=== PATIENT | female | born 1970 | race Caucasian/White ===

== ENCOUNTER 2019-10-19 14:24 | Emergency (ER) | payer OTHER, SELFPAY ==
[2019-10-19] MEDS ORDERED: diphenhydrAMINE 50 MG/ML VIAL ONE (15:01)
[2019-10-19 15:34] LABS: #Basophils 0.1 thou/uL (0.0-0.2); #Eosinphils 0.2 thou/uL (0.0-0.7); #Lymphocytes 1.8 thou/uL (1.20-3.40); #Monocytes 0.6 thou/uL (0.11-0.59); #Neutrophils 4.4 thou/uL (1.40-6.50); %Basophils 1.6 % (0.0-1.0); %Eosinophils 2.9 % (0.0-10.0); %Lymphocytes 25.2 % (21.0-51.0); %Neutrophils 61.4 % (42.0-75.0); Hemoglobin 12.8 g/dL (12.0-16.0); Mean Corpuscular HGB CONC 34.1 g/dL (32.0-36.0); Mean Corpuscular Hemoglobin 30.3 pg (27.0-31.0); Mean Platelet Volume 7.2 fL (7.4-10.4); Platelet Count 272 thou/uL (130-400); RBC Distribution Width 12.2 % (11.5-14.5); Red Blood Cell (RBC) Count 4.22 mill/uL (4.20-5.40); White Blood Cell (WBC) Count 7.1 thou/uL (4.8-10.8)
--- NOTE | 2019-10-19 15:46 | RAD ---
Portable supine frontal chest radiograph: 10/19/2019 COMPARISON: None HISTORY: Pain FINDINGS: Supine imaging limits assessment for pneumothorax and pleural fluid. Heart and mediastinal contours are grossly unremarkable. Lungs appear clear. IMPRESSION: No acute findings.
[2019-10-19 15:51] LABS: ALT (SGPT) 10 U/L (8-55); AST (SGOT) 13 U/L (5-34); Albumin 3.8 g/dL (3.5-5.0); Alkaline Phosphatase 53 U/L (40-110); Anion Gap 12 mmol/L (10-20); BUN (Urea Nitrogen) 10 mg/dL (7.0-18.7); Bilirubin, Total 0.2 mg/dL (0.2-1.2); Calc. Creatinine Clearance 0 mL/min (70-130); Calcium 8.9 mg/dL (7.8-10.44); Carbon Dioxide 25 mmol/L (22-29); Chloride 104 mmol/L (98-107); Estimated GFR-MDRD 77; Globulin 2.8 g/dL (2.4-3.5); Glucose 74 mg/dL (70-105); Potassium 3.9 mmol/L (3.5-5.1); Protein, Total 6.6 g/dL (6.0-8.3); Sodium 137 mmol/L (136-145)
--- NOTE | 2019-10-19 15:51 | RAD ---
2 views of the left hip: 10/19/2019 COMPARISON: None HISTORY: Fall, trauma, pain FINDINGS: No fracture or dislocation. No radiopaque foreign body or subcutaneous gas. Mild superior j oint space narrowing with mild lateral acetabular osteophyte formation. IMPRESSION: No acute findings.
--- NOTE | 2019-10-19 15:54 | RAD ---
Exam:4 views left HISTORY: Fall. Pain. COMPARISON: None FINDINGS: No fracture. No cortical irregularity. No periosteal reaction. Joint spaces preserved. No j oint effusion. There is irregularity involving the inferior aspect of the patella, inferior patellar tendon insertion site IMPRESSION: Chronic changes along the inferior aspect of the patella. No acute fracture.
--- NOTE | 2019-10-19 15:56 | RAD ---
Exam:Left tibia fibula 2 views HISTORY: Fall. Pain. COMPARISON: None FINDINGS: No fracture, cortical irregularity or periosteal reaction IMPRESSION: No fracture.
--- NOTE | 2019-10-19 16:07 | CT ---
EXAM: HEAD CT WITHOUT CONTRAST: 10/19/19 HISTORY: Fall. Inoperable aneurysm. Headache. COMPARISON: None. FINDINGS: No parenchymal hemorrhage. No extra-axial hematoma. No midline shift. Basilar cisterns are patent. Br ain volume is age appropriate. Cortical mills-white matter differentiation preserved. No hydrocephalus . Adequate aeration of the sinuses and mastoid air cells. Intact calvarium. IMPRESSION: No acute intracranial process. POS: OFF
[2019-10-19] MEDS ORDERED: Ketorolac Tromethamine 30 MG/ML VIAL ONE (16:22)
== END 2019-10-19 16:42 | disposition home or self-care (01) ==
LOC: ERS 14:24
DX: S06.9X9A Unspecified intracranial injury with loss of consciousness of unspecified duration, initial encounter (principal); F41.9 Anxiety disorder, unspecified; F90.9 Attention-deficit hyperactivity disorder, unspecified type; E03.9 Hypothyroidism, unspecified; W18.30XA Fall on same level, unspecified, initial encounter
CPT/HCPCS: 70450; 71045; 80053; 84484; 85025; 93005; 96374; 96375; J1200; J1885